=== PATIENT | male | born 1935 | race African-American/Black ===

== ENCOUNTER 2016-12-06 15:42 | Emergency (ER) | payer MEDICARE, MEDICAID ==
[~2016-12-06] VITALS: Ht 182.9 cm; Wt 81.6 kg
[~2016-12-06 15:42] MED LIST: AMLODIPINE BESY10 MG ORAL; ASPIRIN EC81 MG ORAL; CYCLOBENZAPRINE10 MG ORAL; ENALAPRIL MALEA20 MG ORAL; FUROSEMIDE40 MG ORAL; GABAPENTIN300 MG ORAL; IBUPROFEN600 MG ORAL; KLOR-CON 1010 MEQ ORAL; LABETALOL H5 MG/1 M1 PO; LANSOPRAZOLE30 MG ORAL; LEVOTHYROXINE200 MCG PO; PROSCAR5 MG ORAL; TAMSULOSIN HCL0.4 MG ORAL
[2016-12-06] MEDS ORDERED: Morphine Sulfate 4mg/ml Inj IVP ONE (16:00)
--- NOTE | 2016-12-06 16:07 | Emergency Room Report ---
History of Present Illness General Chief Complaint: Pain Source: Patient, EMS Present Illness HPI Patient presents to [facility] with right upper quadrant pain. It started this morning when he sat up to eat breakfast. It was sharp at that time and has continued anytime he tried to move about. Denies any nausea vomiting diarrhea. He is passing gas. The patient still has his gallbladder. He had stomach surgery for an ulcer in the past. Denies any fevers or chills. The patient does have COPD and has been wheezing. He denies any productive cough at this time. On O2 chronically. No fever or chills. No chest pain, joint pain, change in bowels. Allergies: Coded Allergies: No Known Allergies (Verified , 09/24/07) Patient History Past Medical History: see triage record, other - djd spine and neck Past Surgical History: other - stomach surgery for PUD Social History: Reports: smoking - prior Social History Narrative [place] Reviewed Nursing Documentation: PMH: Agreed, PSxH: Agreed Nursing Documentation-PMH Hx Hypertension: Yes Hx COPD: Yes Hx Cancer: No Hx Cerebrovascular Accident: Yes Review of Systems All Other Systems: negative except mentioned in HPI Physical Exam Vital Signs Date Time Temp Pulse Resp B/P Pulse Ox O2 Delivery O2 Flow Rate FiO2 12/06/16 15:39 97.0 63 18 135/81 95 Nasal Cannula 2.0 Sp02 EP Interpretation: reviewed, abnormal - interpreted as low by me on O2 General Appearance: well appearing, no apparent distress, GCS 15 Head: normocephalic Eyes: bilateral eye PERRL, bilateral eye normal inspection ENT: moist mucus membranes Neck: supple Respiratory: wheezing, expiration Cardiovascular #1: regular rate, rhythm Cardiovascular #2: 2+ radial (R) Gastrointestinal: normal inspection, normal bowel sounds, no mass, non- distended, no guarding, no rebound, tenderness - RUQ, more on surface/abdominal wall, no referred pain Musculoskeletal: back normal, normal range of motion Neurologic: oriented x3, motor weakness - R sided Psychiatric: mood/affect normal Skin: other - RUQ scar Medical Decision Making Diagnostic Impression: Primary Impression: Strain of abdominal wall Qualified Codes: S39.011A - Strain of muscle, fascia and tendon of abdomen, initial encounter Additional Impression: COPD (chronic obstructive pulmonary disease) Qualified Codes: J44.9 - Chronic obstructive pulmonary disease, unspecified ER Course Patient presents with RUQ pain abrupt onset. DDx: gall stone, strain, PUD, gastroenteritis, renal stone. Emergent evaluation with labs and xrays (abdomen) . Also with wheezing. No fever. Consider pneumonia, COPD exacerbation, cardiac asthma amongst others. Need to evaluate with labs and cxr. Treatment with beta agents. Hx and physical most c/w muscle strain or tear. Labs with normal WBC and H/H. Films unremarkable (though CXR with increased byers - clinically not pneumonia). Improved with tx for pain and also breathing treatment.s. Patient stable for outpatient observation and treatment. Laboratory Tests Test 12/06/16 16:15 12/06/16 18:00 White Blood Count 6.9 K/UL (4.8-10.8) Red Blood Count 4.21 M/UL (4.70-6.10) L Hemoglobin 12.8 G/DL (14.2-18.0) L Hematocrit 39.2 % (42.0-52.0) L Mean Corpuscular Volume 93 FL (80-99) Mean Corpuscular Hemoglobin 30.3 PG (27.0-31.0) Mean Corpuscular Hemoglobin Concent 32.6 G/DL (32.0-36.0) Red Cell Distribution Width 13.2 % (11.6-14.8) Platelet Count 213 K/UL (150-450) Mean Platelet Volume 6.8 FL (6.5-10.1) Neutrophils (%) (Auto) 50.0 % (45.0-75.0) Lymphocytes (%) (Auto) 35.7 % (20.0-45.0) Monocytes (%) (Auto) 8.7 % (1.0-10.0) Eosinophils (%) (Auto) 4.1 % (0.0-3.0) H Basophils (%) (Auto) 1.5 % (0.0-2.0) Sodium Level 141 mEQ/L (135-145) Potassium Level 4.3 mEQ/L (3.4-4.9) Chloride Level 101 mEQ/L (98-107) Carbon Dioxide Level 27 mEQ/L (20-30) Anion Gap 13 (5-15) Blood Urea Nitrogen 18 mg/dL (7-23) Creatinine 1.2 mg/dL (0.7-1.2) Estimate Glomerular Filtration Rate mL/min (>60) Glucose Level 106 mg/dL (74-106) Lactic Acid Level 0.80 mmol/L (0.66-2.22) Calcium Level 8.9 mg/dL (8.6-10.2) Total Bilirubin 0.3 mg/dL (0.0-1.2) Aspartate Amino Transferase (AST) 19 U/L (5-40) Alanine Aminotransferase (ALT) 19 U/L (3-41) Alkaline Phosphatase 79 U/L (40-129) Total Protein 7.4 g/dL (6.6-8.7) Albumin 4.0 g/dL (3.5-5.2) Globulin 3.4 g/dL Albumin/Globulin Ratio 1.1 (1.0-2.7) Lipase 12 U/L (< 60) Urine Color Pale yellow Urine Appearance Clear Urine pH 5 (4.5-8.0) Urine Specific [place] 1.020 (1.005-1.035) Urine Protein 2+ (NEGATIVE) H Urine Glucose (UA) Negative (NEGATIVE) Urine Ketones Negative (NEGATIVE) Urine Occult Blood 2+ (NEGATIVE) H Urine Nitrite Negative (NEGATIVE) Urine Bilirubin Negative (NEGATIVE) Urine Urobilinogen Normal MG/DL (0.0-1.0) Urine Leukocyte Esterase 3+ (NEGATIVE) H Urine RBC 2-4 /HPF (0 - 0) H Urine WBC 5-10 /HPF (0 - 0) H Urine Squamous Epithelial Cells None /LPF (NONE/OCC) Urine Bacteria Moderate /HPF (NONE) H Chest X-Ray Diagnostic Results EP Interpretation: Yes Findings: no effusion, no pneumothorax, other - increased byers R - slight rotation Number of Views: 1 Last Vital Signs Date Time Temp Pulse Resp B/P Pulse Ox O2 Delivery O2 Flow Rate FiO2 12/06/16 18:38 97.0 12/06/16 18:36 75 17 140/80 96 Nasal Cannula 2.0 12/06/16 16:25 28 Status: improved Scripts Tramadol Hcl* (ULTRAM*) 50 Mg Tablet 50 MG ORAL Q6H Y for For Pain, #12 TAB 0 Refills Prov: Eliot Schaeffer M.D. 12/06/16 Eliot Schaeffer M.D. Dec 06, 2016 16:07
[2016-12-06] MEDS ORDERED: Ipratropium 0.02% Inh Soln 2.5ml UD HHN ONE (16:15)
[2016-12-06] MEDS ORDERED: Albuterol ud Inhalation HHN ONE (16:15)
[2016-12-06] MEDS ORDERED: TYLENOL650 MG/20. ORAL (16:30)
[2016-12-06] MEDS ORDERED: TRAMADOL HCL50 MG ORAL ×2 (16:30→18:39)
[2016-12-06] MEDS ORDERED: TIZANIDINE HCL4 MG ORAL (16:30)
[2016-12-06] MEDS ORDERED: SPIRIVA18 MCG INH (16:30)
[2016-12-06 16:31] VITALS: BP 144/85
[2016-12-06 16:32] LABS: BASOPHILS % (AUTO) 1.5 % (0.0-2.0); EOSINOPHILS % (AUTO) 4.1 % (0.0-3.0); LYMPHOCYTES % (AUTO) 35.7 % (20.0-45.0); MEAN CORPUSCULAR HEMOGLOBIN 30.3 PG (27.0-31.0); MEAN CORPUSCULAR HGB CONC 32.6 G/DL (32.0-36.0); MEAN CORPUSCULAR VOLUME 93 FL (80-99); MEAN PLATELET VOLUME 6.8 FL (6.5-10.1); MONOCYTES % (AUTO) 8.7 % (1.0-10.0); PLATELET COUNT 213 K/UL (150-450); RED BLOOD COUNT 4.21 M/UL (4.70-6.10); RED CELL DISTRIBUTION WIDTH 13.2 % (11.6-14.8); WHITE BLOOD COUNT 6.9 K/UL (4.8-10.8)
[2016-12-06 16:58] LABS: ALANINE AMINOTRANSFERASE 19 U/L (3-41); ALBUMIN/GLOBULIN RATIO 1.1 (1.0-2.7); ANION GAP 13 (5-15); ASPARTATE AMINO TRANSFERASE 19 U/L (5-40); CALCIUM 8.9 mg/dL (8.6-10.2); CARBON DIOXIDE 27 mEQ/L (20-30); CHLORIDE 101 mEQ/L (98-107); CREATININE 1.2 mg/dL (0.7-1.2); HEMOLYSIS 5; LIPASE 12 U/L (< 60); POTASSIUM 4.3 mEQ/L (3.4-4.9); SODIUM 141 mEQ/L (135-145); TOTAL PROTEIN 7.4 g/dL (6.6-8.7)
[2016-12-06 18:36] VITALS: BP 140/80
[2016-12-06 18:50] LABS: APPEARANCE,URINE CLEAR; KETONES,URINE NEGATIVE (NEGATIVE); LEUKOCYTE ESTERASE ,URINE 3+ (NEGATIVE); NITRITE,URINE NEGATIVE (NEGATIVE); PH,URINE 5 (4.5-8.0); PROTEIN,URINE 2+ (NEGATIVE); UROBILINOGEN,URINE NORMAL MG/DL (0.0-1.0)
[2016-12-06 19:39] LABS: BACTERIA,URINE MODERATE /HPF
--- NOTE | 2016-12-07 12:34 | Diagnostic Imaging Report ---
Indication: Abdominal pain Comparison: None Single view of the abdomen obtained Findings: Bowel gas pattern is nonspecific. No mass, ectopic calcifications, or abnormal gas collections are identified. Degenerative changes of the lumbar spine are noted. The bones are osteopenic. Impression: No acute findings
--- NOTE | 2016-12-07 12:35 | Diagnostic Imaging Report ---
Indication: Chest Pain Comparison: None A single view chest radiograph was obtained. Findings: Questionable infiltrate in the right midlung noted. Please correlate clinically. The heart is enlarged. The aorta is mildly enlarged consistent with atherosclerotic vascular disease. The bones are osteopenic. Impression: Question of pneumonia right midlung
[2016-12-09] MEDS ORDERED: NITROFURANTOIN100 M2 ORAL (14:49)
== END 2016-12-06 18:36 ==
LOC: EDBD 15:42 → EMR 17:42
DX: S39.011A Strain of muscle, fascia and tendon of abdomen, initial encounter (principal); X58.XXXA Exposure to other specified factors, initial encounter; Y92.009 Unspecified place in unspecified non-institutional (private) residence as the place of occurrence of the external cause; J44.9 Chronic obstructive pulmonary disease, unspecified; I10 Essential (primary) hypertension; R07.9 Chest pain, unspecified; Z87.891 Personal history of nicotine dependence
CPT/HCPCS: 36415; 71010; 74000; 80053; 81003; 83605; 83690; 85025; 87086; 87181; 94640; 94664; 96374; 96375; 99284; J2270; J2405